=== PATIENT | male | born 1995 | race Hispanic/Latino ===

== ENCOUNTER 2018-01-12 10:26 | Emergency (ER) | payer BC ==
--- NOTE | 2018-01-12 12:03 | ER ---
Nurse's Notes [facility] Name: Calvin Osei Age: 22 yrs Sex: Male : 1995 Arrival Date: 01/12/2018 Time: 10:30 Bed 25 Private MD: None, None Diagnosis: Ingrowing nail Presentation: 01/12 10:55 Presenting complaint: Patient states: "I don't know if its an ingrown nail on my foot, aj1 but its swollen on the side and it hurts to walk and I'm on my feet all day at work" Patient reports pain to left great toe. Patient ambulated to triage with a steady gait. Transition of care: patient was not received from another setting of care. Onset of symptoms was January 11, 2018. Risk Assessment: Do you want to hurt yourself or someone else? Patient reports no desire to harm self or others. Initial Sepsis Screen: Does the patient meet any 2 criteria? No. Patient's initial sepsis screen is negative. Does the patient have a suspected source of infection? No. Patient's initial sepsis screen is negative. Care prior to arrival: None. 10:55 Method Of Arrival: Ambulatory aj1 10:55 Acuity: GIO 4 aj1 Triage Assessment: 10:57 General: Appears in no apparent distress. comfortable, Behavior is calm, cooperative, aj1 appropriate for age. Pain: Complains of pain in left first toe and Left first toenail Pain currently is 5 out of 10 on a pain scale. at worst was 10 out of 10 on a pain scale. Neuro: Level of Consciousness is awake, alert, obeys commands. Cardiovascular: Patient's skin is warm and dry. Respiratory: Airway is patent Respiratory effort is even, unlabored, Respiratory pattern is regular, symmetrical. Historical: - Allergies: 10:57 Triaminic Allergy; aj1 - Home Meds: 10:57 None [Active]; aj1 - PMHx: 10:57 None; aj1 - Immunization history:: Flu vaccine is not up to date. - Social history:: Smoking status: Patient uses tobacco products, smokes one-half pack cigarettes per day. - Ebola Screening: : Patient denies travel to an Ebola-affected area in the 21 days before illness onset. Screenin:29 Abuse screen: Denies threats or abuse. Nutritional screening: No deficits noted. tw2 Tuberculosis screening: No symptoms or risk factors identified. Fall Risk None identified. Assessment: 11:26 General: Appears in no apparent distress. obese, Behavior is calm, cooperative, tw2 appropriate for age. Pain: Complains of pain in Left first toenail. Neuro: Level of Consciousness is awake, alert, obeys commands, Oriented to person, place, time, situation. Cardiovascular: Capillary refill < 3 seconds Patient's skin is warm and dry. Respiratory: Airway is patent Respiratory effort is even, unlabored, Respiratory pattern is regular, symmetrical. GI: No signs and/or symptoms were reported involving the gastrointestinal system. : No signs and/or symptoms were reported regarding the genitourinary system. EENT: No signs and/or symptoms were reported regarding the EENT system. Derm: appears to be ingrown toenail on the left lateral border of the great toe, redness noted, nail is short and cut back short on this border. Musculoskeletal: Capillary refill < 3 seconds, Range of motion: intact in all extremities. 12:07 Reassessment: Patient appears in no apparent distress at this time. No changes from tw2 previously documented assessment. Patient and/or family updated on plan of care and expected duration. Pain level reassessed. Patient is alert, oriented x 3, equal unlabored respirations, skin warm/dry/pink. Vital Signs: 10:57 BP 130 / 74; Pulse 88; Resp 18; Temp 97.0; Pulse Ox 98% on R/A; Weight 97.07 kg (R); aj1 Height 5 ft. 3 in. (160.02 cm) (R); Pain 5/10; 10:57 Body Mass Index 37.91 (97.07 kg, 160.02 cm) aj1 ED Course: 10:30 Patient arrived in ED. sb2 10:31 None, None is Private Physician. sb2 10:56 Triage completed. aj1 10:57 Arm band placed on Patient placed in waiting room, Patient notified of wait time. aj1 11:24 Apolonia Cartagena, SIMONA is Primary Nurse. tw2 11:27 Godfrey Tang PA is PHCP. jr8 11:27 Mike Alvarado MD is Attending Physician. jr8 11:29 Bed in low position. Call light in reach. Pulse ox on. NIBP on. tw2 12:02 Obie Dave DPM is Referral Physician. jr8 12: No provider procedures requiring assistance completed. Patient did not have IV access tw2 during this emergency room visit. Administered Medications: No medications were administered Outcome: 12:02 Discharge ordered by . jr8 12:07 Discharged to home ambulatory. tw2 12:07 Condition: stable 12:07 Discharge instructions given to patient, Instructed on discharge instructions, follow up and referral plans. no drinking with medication, no driving heavy equipment, medication usage, Demonstrated understanding of instructions, follow-up care, medications, Prescriptions given X 3. 12:08 Patient left the ED. tw2 Signatures: Chica Oglesby RN RN aj1 Godfrey Tang PA PA jr8 Apolonia Cartagena RN RN tw2 Lucy Hernandez sb2
--- NOTE | 2018-01-12 12:03 | EDPHYS ---
Physician Documentation [facility] Name: Calvin Osei Age: 22 yrs Sex: Male : 1995 Arrival Date: 01/12/2018 Time: 10:30 Bed 25 Private MD: None, None ED Physician Mike Alvarado HPI: 01/12 11:54 This 22 yrs old Male presents to ER via Ambulatory with complaints of Ingrown jr8 toenail. 11:54 The complaints affect the left foot. Onset: The symptoms/episode began/occurred jr8 gradually, 2 day(s) ago. Modifying factors: The symptoms are alleviated by nothing, the symptoms are aggravated by weight bearing, movement. Associated signs and symptoms: The patient has no apparent associated signs or symptoms. Severity of symptoms: At their worst the symptoms were mild, in the emergency department the symptoms are unchanged. The patient has not experienced similar symptoms in the past. The patient has not recently seen a physician. Pain to left great toe. Historical: - Allergies: 10:57 Triaminic Allergy; aj1 - Home Meds: 10:57 None [Active]; aj1 - PMHx: 10:57 None; aj1 - Immunization history:: Flu vaccine is not up to date. - Social history:: Smoking status: Patient uses tobacco products, smokes one-half pack cigarettes per day. - Ebola Screening: : Patient denies travel to an Ebola-affected area in the 21 days before illness onset. ROS: 11:54 Constitutional: Negative for fever, chills, and weight loss. jr8 11:54 MS/extremity: Positive for pain, swelling, tenderness, of the left first toe. 11:54 All other systems are negative. Exam: 11:54 Constitutional: This is a well developed, well nourished patient who is awake, alert, jr8 and in no acute distress. Cardiovascular: Regular rate and rhythm with a normal S1 and S2. No gallops, murmurs, or rubs. Normal PMI, no JVD. No pulse deficits. Respiratory: Lungs have equal breath sounds bilaterally, clear to auscultation and percussion. No rales, rhonchi or wheezes noted. No increased work of breathing, no retractions or nasal flaring. Skin: Warm, dry with normal turgor. Normal color with no rashes, no lesions, and no evidence of cellulitis. Neuro: Awake and alert, GCS 15, oriented to person, place, time, and situation. Cranial nerves II-XII grossly intact. Motor strength 5/5 in all extremities. Sensory grossly intact. Cerebellar exam normal. Normal gait. 11:54 Musculoskeletal/extremity: ROM: intact in all extremities, Circulation is intact in all extremities. Sensation intact. Mild redness and swelling along with tenderness to lateral cuticule region of left great toe. No exudate noted upon expressing region. . Vital Signs: 10:57 BP 130 / 74; Pulse 88; Resp 18; Temp 97.0; Pulse Ox 98% on R/A; Weight 97.07 kg (R); aj1 Height 5 ft. 3 in. (160.02 cm) (R); Pain 5/10; 10:57 Body Mass Index 37.91 (97.07 kg, 160.02 cm) aj1 MDM: 11:27 Patient medically screened. [facility] 11:54 Data reviewed: vital signs, nurses notes, and as a result, I will discharge patient. [facility] Data interpreted: Pulse oximetry: on room air is 98 %. Interpretation: normal. Counseling: I had a detailed discussion with the patient and/or guardian regarding: the historical points, exam findings, and any diagnostic results supporting the discharge/admit diagnosis, the need for outpatient follow up, a career coach, to return to the emergency department if symptoms worsen or persist or if there are any questions or concerns that arise at home. Administered Medications: No medications were administered Disposition: 14:08 Co-signature as Attending Physician, Mike Alvarado MD. rn Disposition: 01/12/18 12:02 Discharged to Home. Impression: Ingrowing nail. - Condition is Stable. - Discharge Instructions: Ingrown Toenail. - Prescriptions for Ibuprofen 800 mg Oral Tablet - take 1 tablet by ORAL route every 12 hours As needed take with food; 20 tablet. Tylenol- Codeine #3 300-30 mg Oral Tablet - take 2 tablets by ORAL route every 6 hours As needed; 12 tablet. Keflex 500 mg Oral Capsule - take 1 capsule by ORAL route every 8 hours for 7 days; 21 capsule. - Medication Reconciliation Form, Thank You Letter, Antibiotic Education, Prescription Opioid Use, Work release form form. - Follow up: Obie Dave DPM; When: 5 - 6 days; Reason: Recheck today's complaints, Continuance of care, Re-evaluation by your physician. - Problem is new. - Symptoms have improved. Signatures: Chica Oglesby RN RN aj1 Mike Alvarado MD MD rn Roszak, Josh, PA PA jr8 Apolonia Cartagena RN RN tw2 Corrections: (The following items were deleted from the chart) 12:02 11:54 Cardiovascular: Regular rate and rhythm with a normal S1 and S2. No gallops, jr8 murmurs, or rubs. Normal PMI, no JVD. No pulse deficits. Respiratory: Lungs have equal breath sounds bilaterally, clear to auscultation and percussion. No rales, rhonchi or wheezes noted. No increased work of breathing, no retractions or nasal flaring. Skin: Warm, dry with normal turgor. Normal color with no rashes, no lesions, and no evidence of cellulitis. Neuro: Awake and alert, GCS 15, oriented to person, place, time, and situation. Cranial nerves II-XII grossly intact. Motor strength 5/5 in all extremities. Sensory grossly intact. Cerebellar exam normal. Normal gait. jr8 12:08 12:02 01/12/2018 12:02 Discharged to Home. Impression: Ingrowing nail. Condition is tw2 Stable. Forms are Work release form, Medication Reconciliation Form, Thank You Letter, Antibiotic Education, Prescription Opioid Use. Follow up: Obie Dave; When: 5 - 6 days; Reason: Recheck today's complaints, Continuance of care, Re-evaluation by your physician. Problem is new. Symptoms have improved. jr8
== END 2018-01-12 12:08 | disposition home or self-care (01) ==
LOC: ER 10:26
DX: L60.0 Ingrowing nail (principal); F17.210 Nicotine dependence, cigarettes, uncomplicated; Z88.8 Allergy status to other drugs, medicaments and biological substances
CPT/HCPCS: 99283